=== PATIENT | male | born 1965 | race Caucasian/White ===

== ENCOUNTER 2019-07-30 06:57 | Day surgery (SDC) | payer OTHER ==
[2019-07-30] MEDS ORDERED: PROPOFOL INJ 200 MG/20 ML VIAL IV ONE (08:07)
[2019-07-30 09:57] VITALS: BP 158/83
--- NOTE | 2019-07-30 12:43 | Operative Report ---
Operative Report DATE OF SURGERY: 07/30/19 Operative Report: Risks, benefits and alternatives of the procedure including the risk of bleeding, perforation requiring surgery have been explained to the patient in detail and informed consent has been obtained. The patient is placed in a left, lateral decubital position. Timeout was called. Propofol medication is administered. Rectal examination was done which did not reveal any masses, tears or fissures. An Olympus videoscope was introduced into the patient's rec jori. Scope was then carefully advanced all the way to the cecum. Cecum was identified by the usual anatomical landmarks including the ileocecal valve as well as the appendiceal office. Photodocumentation is obtained. Scope was then sequentially pulled back via the various segments of the colon including the ascending colon, hepatic flexure, transverse colon, splenic flexure, descending colon finding to the rectosigmoid portions of the colon. Retroflexion maneuvers performed. PREOPERATIVE DIAGNOSIS: Colorectal cancer screening POSTOPERATIVE DIAGNOSIS: There is left-sided colon inflammation status post biopsy OPERATION: Colonoscopy with biopsy SURGEON: HANY ROGERS ANESTHESIA: LMAC TISSUE REMOVED OR ALTERED: As noted above. COMPLICATIONS: None. ESTIMATED BLOOD LOSS: None. INTRAOPERATIVE FINDINGS: As noted above. PROCEDURE: Patient tolerated the procedure well. No immediate postprocedure complications are noted. Patient is discharged in good condition. Discharge date 07/30/2019. Discharge diet: Regular. Discharge activity: Regular. 2 to 3-week follow-up to discuss findings. Patient is instructed to call the office or proceed to the emergency room should there be any further problems or questions. Wait on the pathology May need 5-year surveillance colonoscopy
== END 2019-07-30 10:00 | disposition home or self-care (01) ==
LOC: END 06:57
PROVIDERS: ATTEND Internal Medicine Gastroenterology
DX: Z12.11 Encounter for screening for malignant neoplasm of colon (principal); K52.9 Noninfective gastroenteritis and colitis, unspecified; Z79.899 Other long term (current) drug therapy
CPT/HCPCS: 45380; 88305 ×2; 00812; J2704; 812